=== PATIENT | male | born 1960 | race Caucasian/White ===

== ENCOUNTER → 2016-09-02 | Outpatient (CLI) | payer OTHER ==
--- NOTE | 2016-09-02 13:14 | REP ---
CHEST, TWO VIEWS: Comparison: 01/11/2011. There is no evidence of acute infiltrate. No pleural effusion is seen. The heart is normal in size. The mediastinal silhouette is unremarkable. The visualized osseous structures are intact. There are mild degenerative changes of the spine. IMPRESSION: No acute pulmonary disease. Signed by Jamal Teresa MD 09/03/2016 03:14 P
== END ==
LOC: M WUC 12:13
PROVIDERS: ATTEND Physician Assistant
DX: J20.9 Acute bronchitis, unspecified (principal)

== ENCOUNTER → 2016-10-15 | Outpatient (REF) | payer OTHER ==
[2016-10-15 11:50] LABS: MEAN CORPUSCULAR HGB CONC 34.2 g/dl (32.0-36.5); MEAN CORPUSCULAR VOLUME 90.5 fl (80.0-96.0); RED CELL DISTRIBUTION WIDTH 12.8 % (11.5-14.5); WHITE BLOOD COUNT 5.8 K/mm3 (4.0-10.0)
[2016-10-15 12:06] LABS: ALBUMIN 3.8 GM/DL (3.2-5.2); ALKALINE PHOSPHATASE 47 U/L (45-117); ALT/SGPT 129 U/L (12-78); ANION GAP 8 MEQ/L (8-16); AST/SGOT 84 U/L (15-37); BILIRUBIN,TOTAL 0.7 MG/DL (0.2-1.0); BLOOD UREA NITROGEN 14 MG/DL (7-18); CALCIUM LEVEL 9.4 MG/DL (8.5-10.1); CARBON DIOXIDE LEVEL 29 MEQ/L (21-32); CHLORIDE LEVEL 100 MEQ/L (98-107); CHOLESTEROL LEVEL 222 MG/DL (<200); CREATININE FOR GFR 0.84 MG/DL (0.70-1.30); GLOMERULAR FILTRATION RATE > 60.0 (>56); GLUCOSE, FASTING 181 MG/DL (70-105); POTASSIUM SERUM 4.6 MEQ/L (3.5-5.1); SODIUM LEVEL 137 MEQ/L (136-145); TOTAL PROTEIN 7.6 GM/DL (6.4-8.2); TRIGLYCERIDES LEVEL 136 MG/DL (<150)
== END ==
LOC: M SFHCLERA 07:37
PROVIDERS: ATTEND Physician Assistant
DX: E11.65 Type 2 diabetes mellitus with hyperglycemia (principal); E78.2 Mixed hyperlipidemia